=== PATIENT | male | born 1960 | race Caucasian/White ===

== ENCOUNTER → 2021-10-20 | Outpatient (CLI) | payer OTHER ==
[~2021-10-20] MED LIST: AMLODIPINE BESY10 MG PO; CELECOXIB200 MG PO; CYMBALTA30 MG PO; DONEPEZIL HCL10 MG PO; LAMOTRIGINE200 MG PO; METFORMIN HCL500 MG PO; ROBAXIN 750 MG750 MG PO; SIMVASTATIN10 MG PO; TESTOSTERO200 MG/1 M IM
[2021-10-20 09:48] LABS: BUN/CREATININE RATIO 16 (0-10)
== END ==
LOC: OPSV2 08:46
PROVIDERS: Orthopaedic Surgery
DX: Z01.818 Encounter for other preprocedural examination (principal); M71.332 Other bursal cyst, left wrist
CPT/HCPCS: 80048; 93005

== ENCOUNTER → 2021-10-31 | Day surgery (SDC) | payer OTHER ==
[~2021-10-31] VITALS: Ht 152.4 cm; Wt 93.9 kg
[~2021-10-31] MED LIST changes: +HYDROCODON-ACE1 EAC2 PO
== END | disposition home or self-care (01) ==
LOC: OR 06:25
DX: M71.332 Other bursal cyst, left wrist (principal); I10 Essential (primary) hypertension; J45.909 Unspecified asthma, uncomplicated; E11.9 Type 2 diabetes mellitus without complications; E78.5 Hyperlipidemia, unspecified; F41.9 Anxiety disorder, unspecified; Z79.84 Long term (current) use of oral hypoglycemic drugs; Z79.899 Other long term (current) drug therapy
CPT/HCPCS: J0690; J1100; J2001; J2250; J2405; J2704; J3010